=== PATIENT | female | born 1940 | race Two or more races ===

== ENCOUNTER 2019-02-16 17:31 | Emergency (ER) | payer MEDICAID, MEDICARE, OTHER ==
[~2019-02-16] VITALS: Ht 139.7 cm; Wt 60.3 kg
[2019-02-16] MEDS ORDERED: LATA2.5D7 EACHEYE (17:43)
[2019-02-16] MEDS ORDERED: DOXY25TA55 PO (17:43)
[2019-02-16] MEDS ORDERED: AMLO5TAB9 PO (17:43)
[2019-02-16] MEDS ORDERED: VALS80TA2 PO (17:44)
[2019-02-16] MEDS ORDERED: SENN8.6T19 PO (17:44)
[2019-02-16] MEDS ORDERED: TIZA4TAB5 PO (17:44)
--- NOTE | 2019-02-16 17:51 | NUR ---
DIANE WALSH 58 [facility]. Patient a/ox4, breathing even and unlabored, no sob noted, needs attended, c/o stanley. hand pain, "knocked out" a tooth. Attached to the monitoring tech. Will monitor.
[2019-02-16] MEDS ORDERED: IBUPROFEN 600 MG TABLET PO ONE ×2 (19:06→19:30)
--- NOTE | 2019-02-16 19:48 | NUR ---
CALLED [facility] FOR TRANSPORTATION. ETA [id number] TRIP #[id number]
--- NOTE | 2019-02-16 20:17 | NUR ---
PT TRANSPORTED BY [facility]ILY BACK TO [facility].
[2019-02-16 20:18] VITALS: BP 146/61
--- NOTE | 2019-02-16 20:18 | NUR ---
Patient discharged to home in stable condition. Written and verbal after care instructions given. Patient verbalizes understanding of instruction. Pt ambulatory with a steady gait
== END 2019-02-16 20:21 | disposition home or self-care (01) ==
LOC: ER 17:40
DX: S62.616A Displaced fracture of proximal phalanx of right little finger, initial encounter for closed fracture (principal); S03.2XXA Dislocation of tooth, initial encounter; S00.83XA Contusion of other part of head, initial encounter; S60.312A Abrasion of left thumb, initial encounter; I10 Essential (primary) hypertension; G47.00 Insomnia, unspecified; Z88.0 Allergy status to penicillin; Z88.1 Allergy status to other antibiotic agents; Z79.899 Other long term (current) drug therapy; W18.39XA Other fall on same level, initial encounter; Y93.89 Activity, other specified; Y92.89 Other specified places as the place of occurrence of the external cause; Y99.8 Other external cause status
CPT/HCPCS: 70450-TC; 70486-TC; 73130-TC